=== PATIENT | male | born 1945 | race Caucasian/White ===

== ENCOUNTER → 2017-11-13 | Outpatient (CLI) | payer MEDICARE ==
--- NOTE | 2017-11-13 09:10 | CT ---
EXAMINATION TYPE: CT sinus wo con DATE OF EXAM: 11/13/2017 COMPARISON: None HISTORY: Chronic sinusitis CT DLP: 628.7 mGycm. Automated Exposure Control for Dose Reduction was Utilized. TECHNIQUE: CT scan of the sinuses is performed without contrast, axial images are obtained, coronal r eformatted images are also reviewed. FINDINGS: The paranasal sinuses including the frontal, ethmoid, sphenoid, and maxillary sinuses bila terally are well-aerated without abnormal opacification. The ostiomeatal complex is patent bilateral ly on the coronal images. Minimal mucoperiosteal thickening present in the maxillary sinus. Visualized portion of mastoid air cells show no abnormal opacification. The globes are intact bilate rally. Mild age-related atrophy is noted. Mild cerebral vascular calcifications noted in the vertebr al arteries. IMPRESSION: The sinuses are remarkable for minimal mucoperiosteal thickening in the maxillary sinus a nd the ostiomeatal complex is patent bilaterally.
== END ==
LOC: RADCTMAIN 06:50
PROVIDERS: ATTEND Otolaryngology
DX: J32.0 Chronic maxillary sinusitis (principal)
CPT/HCPCS: 70486

== ENCOUNTER → 2018-03-07 | Outpatient (CLI) | payer MEDICARE ==
--- NOTE | 2018-03-07 07:58 | CT ---
EXAMINATION TYPE: CT brain wo con DATE OF EXAM: 03/07/2018 COMPARISON: None HISTORY: abnormal findings skull or head CT DLP: 1121.[address] of the brain was performed. The ventricles, basal cisterns and sulci overlying the cerebral convexities demonstrate mild enlargem ent. There is no evidence for intracranial hemorrhage or sulcal effacement. There is decreased attenuation about the periventricular white matter and deep white matter of both c erebral hemispheres, compatible with chronic small vessel ischemia. Differential diagnosis does inclu de demyelination. No mass effects are seen.No midline shift. Osseous calvarium is intact. Chronic left maxillary sinusitis. If symptoms persist consider MRI. IMPRESSION: 1. Age related atrophic and chronic small vessel ischemic change without acute intracranial process s een at this time.
== END | disposition home or self-care (01) ==
LOC: RADCTMAIN 06:49
PROVIDERS: ATTEND Internal Medicine
DX: G31.1 Senile degeneration of brain, not elsewhere classified (principal); I67.82 Cerebral ischemia
CPT/HCPCS: 70450

== ENCOUNTER → 2018-06-14 | Outpatient (CLI) | payer MEDICARE ==
[2018-06-14 12:12] LABS: Blood Urea Nitrogen 12 mg/dL (9-20)
--- NOTE | 2018-06-14 14:04 | CT ---
EXAMINATION TYPE: CT abdomen pelvis w con DATE OF EXAM: 06/14/2018 COMPARISON: HISTORY: Generalized pain CT DLP: 449.3 mGycm Automated exposure control for dose reduction was used. TECHNIQUE: Helical acquisition of images was performed from the lung bases through the pelvis. CONTRAST: Performed with Oral Contrast and with IV Contrast, patient injected with 100 mL of Isovue 300. FINDINGS: LUNG BASES: Linear pleural parenchymal scarring is seen at the left lung base. LIVER/GB: Hepatic parenchyma is diffusely hypoattenuated in comparison to that of the spleen, most co mmonly seen in hepatic steatosis. This finding limits evaluation for hepatic masses. There is a solit mary too small to accurately characterize 5 mm hypoattenuated lesion in segment 8 of the liver on seri es 3 image 12. Remainder the liver enhances homogeneously. No intrahepatic ductal dilatation. Gallbla dder is unremarkable. PANCREAS: There is concern for a pancreatic body/neck mass as there is hypoattenuation of the pancrea tic parenchyma measuring approximately 2.5 cm in transverse dimension marked on series 3 image 22 wit h downstream ductal dilatation of 4 mm on coronal image 35 and pancreatic body/tail atrophy. Pancreat ic head also appears hyperdense in comparison to this and pelvis although no pancreatic ductal dilata tion is seen as the main pancreatic duct measures 3 mm within the pancreatic head, within normal limi ts. There is abnormal pancreatic body area is cranial to the superior mesenteric artery and abuts but does not encase the superior mesenteric vein. MRI of the abdomen is recommended for confirmation. SPLEEN: No significant abnormality is seen. ADRENALS: No significant abnormality is seen. KIDNEYS: 1.6 cm exophytic left lower pole renal cyst is present. No hydronephrosis or nephrolithiasis . FREE AIR: No free air is visualized. ADENOPATHY: There are few peripancreatic prominent lymph nodes one of which appear slightly hyperden se measuring 8 mm on image 21. Lymph node between the aditya hepatis and in the region of the gastrohe patic ligament measures 7 mm on image 19. No greater than 1 cm short axis lymph nodes are seen in the abdomen or pelvis. REPRODUCTIVE ORGANS: Prostate gland is heterogenous. URINARY BLADDER: No significant abnormality is seen. OSSEOUS STRUCTURES: Punctate nonspecific sclerotic focus is seen within the right iliac bone on imag e 53. Mild/moderate degenerative changes of the spine. BOWEL: Left inguinal hernia is present containing fat and portions of the sigmoid colon. There is so me fascial thickening posteriorly and very minimal inflammatory fat stranding. No dilated bowel to finnegan ggest obstruction. Numerous colonic diverticula are noted. No dilated large or small bowel throughout the abdomen. IMPRESSION: 1. FINDINGS CONCERNING FOR PANCREATIC BODY NEOPLASM. MRI OF THE ABDOMEN PANCREAS MASS PROTOCOL IS REC OMMENDED FOR FURTHER EVALUATION. 2. LEFT INGUINAL HERNIA CONTAINS PORTIONS OF THE SIGMOID COLON WITH VERY SUBTLE QUESTIONABLE FAT STRA NDING/INFLAMMATORY REACTION. NO CURRENT EVIDENCE OF OBSTRUCTION ON CT. 3. HEPATIC STEATOSIS. A Yellow level critical message alert has been initiated for Sagar Miller MD via the [employer] Critical Results System on 06/14/2018 2:01 PM. This message alert has been sent to Sagar Miller MD via the preferences provided by the clinician for the receipt of Radiology Critical Findings. Message ID [id number].
== END | disposition home or self-care (01) ==
LOC: RADCTMAIN 11:29
PROVIDERS: ATTEND Internal Medicine
DX: K40.90 Unilateral inguinal hernia, without obstruction or gangrene, not specified as recurrent (principal); K76.0 Fatty (change of) liver, not elsewhere classified
CPT/HCPCS: 82565; 84520; 74177; 36415; Q9967

== ENCOUNTER → 2018-06-17 | Outpatient (CLI) | payer MEDICARE ==
--- NOTE | 2018-06-18 11:18 | MR ---
EXAMINATION TYPE: MR abdomen wo/w con DATE OF EXAM: 06/17/2018 COMPARISON: CT abdomen and pelvis from 3 days ago. HISTORY: Pancreatic mass, abnormal CT. CONTRAST: Standard multiplanar, multisequence MRI departmental protocol utilizing 6.5 mL intravenous Gadavist g adolinium contrast. FINDINGS: Pancreas: Pancreatic neck mass is confirmed as there is pancreatic ductal dilatation in the body and tail with abrupt cut off secondary to nonenhancing 1.5 x 1.2 cm mass seen best series 701 image 281. Pancreas is bulky and the head without additional mass, there is poor separation of pancreas and brady cent duodenum without definitive mass extension. SMA is unusual course without definitive encasement, there is some redemonstration of focal dilatation image 207 series 701 for reference right before bi furcation. Celiac artery also shows focal prominence or dilatation image 307 series 701 without defin itive encasement. No definitive surrounding lymph nodes are seen. Other: Lung bases are clear. Liver, gallbladder, spleen, and both adrenal glands are normal in size. There is no concerning renal mass or hydronephrosis. There is no suspicious bowel dilatation. Osseous structures show narrowing and endplate changes L3-L4 level. IMPRESSION: Confirmation of obstructing 1.5 cm pancreatic neck mass with ductal dilatation consistent with pancreatic adenocarcinoma.
== END | disposition home or self-care (01) ==
LOC: RADMRIMAIN 13:35
PROVIDERS: ATTEND Internal Medicine
DX: K86.89 Other specified diseases of pancreas (principal)
CPT/HCPCS: 74183; A9585

== ENCOUNTER → 2018-07-02 | Outpatient (CLI) | payer MEDICARE ==
[2018-07-02 12:37] LABS: Partial Thromboplastin Time 26.3 sec (22.0-30.0); Prothrombin Time 10.7 sec (9.0-12.0)
[2018-07-02 19:03] LABS: T4, Free (Free Thyroxine) 1.6 ng/dL (0.80-1.80)
[2018-07-05 14:46] LABS: Lyme IgG/IgM 0.01 Index
== END ==
LOC: LABWHC1 11:33
PROVIDERS: ATTEND Psychiatry & Neurology Neurology
DX: D68.9 Coagulation defect, unspecified (principal); R41.3 Other amnesia
CPT/HCPCS: 36415; 82607; 82747; 84439; 84443; 85610; 85652; 85730; 86038; 86618

== ENCOUNTER → 2018-07-06 | Outpatient (CLI) | payer MEDICARE ==
--- NOTE | 2018-07-06 20:02 | MR ---
EXAMINATION TYPE: MR brain wo/w con DATE OF EXAM: 07/06/2018 COMPARISON: None HISTORY: Other amnesia, neoplasm TECHNIQUE: Multiplanar, multisequence images of the brain and brainstem is performed without and with IV contras t, utilizing 6.5 mL intravenous Gadavist . FINDINGS: There is cerebral cortical atrophy. There is no mass effect nor midline shift. There is no sign of in tracranial hemorrhage. There is no evidence of focal cortical infarct. The brainstem is intact. Corpu s callosum is intact. There is thinning of the corpus callosum. Sella turcica appears normal. There is normal contrast opacification of the vertebrobasilar artery system and the anterior middle a nd posterior cerebral arteries. There is normal contrast opacification of the venous sinuses. There i s no pathologic enhancement. IMPRESSION: Cerebral atrophy. No acute intracranial abnormality.
== END | disposition home or self-care (01) ==
LOC: RADMRIMAIN 09:44
PROVIDERS: ATTEND Psychiatry & Neurology Neurology
DX: G31.9 Degenerative disease of nervous system, unspecified (principal); I63.40 Cerebral infarction due to embolism of unspecified cerebral artery; R29.2 Abnormal reflex; D49.81 Neoplasm of unspecified behavior of retina and choroid
CPT/HCPCS: 70553; A9585

== ENCOUNTER 2018-07-15 12:57 | Day surgery (SDC) | payer MEDICARE ==
[2018-07-15 13:19] VITALS: BMI 20.2
--- NOTE | 2018-07-15 13:28 | P.GSHP ---
History of Present Illness H&P Date: 07/15/18 Chief Complaint: Pancreatic cancer 73-year-old male known to our service. Patient recently diagnosed with locally advanced pancreatic cancer. Here today for Port-A-Cath placement. Plans are for the patient to begin neoadjuvant chemotherapy later this week. Otherwise feels well at this time. Appetite is diminished. Some weight loss. Past Medical History Smoking Status: Never smoker Surgical - Exam Physical exam: General: Well-developed, well-nourished HEENT: Normocephalic, sclerae nonicteric Abdomen: Nontender, nondistended Extremities: No edema Neuro: Alert and oriented Assessment and Plan (1) Pancreatic cancer Narrative/Plan: Will proceed with Port-A-Cath placement at this time. Risks of bleeding, infection, DVT, pneumothorax, catheter malfunction, anesthesia related complications were discussed. The patient understands and wishes to proceed. Current Visit: Yes Status: Acute Code(s): C25.9 - MALIGNANT NEOPLASM OF PANCREAS, UNSPECIFIED SNOMED Code(s): 956730972
[2018-07-15 13:34] VITALS: RESP 16; TEMP 97.3
[2018-07-15] MEDS ORDERED: LACTATED RINGERS 1,000 ML IV ONE (13:39)
[2018-07-15] MEDS ORDERED: LIDOCAINE 1% 20 ML VIAL (10MG/ML) FOR IV START SQ ONE (13:39)
[2018-07-15] MEDS ORDERED: ceFAZolin IN SWFI 2 GM/20 ML SYRINGE IVP ONE (14:46)
[2018-07-15] MEDS ORDERED: LIDOCAINE 1% INJ 10MG/ML (20 ML MDV) ONE (15:28)
[2018-07-15] MEDS ORDERED: MIDAZOLAM 2 MG/2 ML VIAL ONE (15:28)
[2018-07-15] MEDS ORDERED: fentaNYL (PF) 50 MCG/ML 2 ML AMP ONE (15:28)
[2018-07-15] MEDS ORDERED: PROPOFOL 10 MG/ML 20 ML VIAL IV ONE (15:28)
[2018-07-15] MEDS ORDERED: HEPARIN SODIUM,PORCINE 100 UNIT/ML 5 ML VIAL IV ONE (15:56)
[2018-07-15] MEDS ORDERED: LIDOCAINE (PF) 10 MG/ML 2 ML VIAL SQ ONE ×2 (15:56)
[2018-07-15] MEDS ORDERED: HYDROcodone/APAP 5-325MG 1 EACH TAB PO PRN (16:39)
[2018-07-15] MEDS ORDERED: NALOXONE 0.4 MG/ML 1 ML VIAL IV PRN (16:39)
--- NOTE | 2018-07-15 16:42 | P.OP ---
Date of Procedure: 07/15/18 Procedure(s) Performed: PREOPERATIVE DIAGNOSIS: Pancreatic cancer POSTOPERATIVE DIAGNOSIS: Same PROCEDURE: Port-A-Cath placement SURGEON: Forrest EBL: Minimal ANESTHESIA: Sedation COMPLICATIONS: None OPERATIVE PROCEDURE: Patient was brought and placed on the operative table in the supine position. The patient was sedated per anesthesia that time. The chest and neck were prepped and draped in usual sterile fashion. The ultrasound probe was used to identify the location of the right internal jugular vein. The skin was localized with lidocaine. The Seldinger needle was advanced into the IJ under ultrasound guidance. The wire was advanced through the needle under fluoroscopic guidance into the superior vena cava. A port pocket was created in the right infraclavicular location. The catheter was tunneled from the wire entrance site to the port pocket. The port was then connected to the catheter. The dilator introducer was threaded over the guidewire. The guidewire and dilator were then removed. The catheter was advanced through the introducer and introducer was then removed. The tip was seen to be in the right atrial junction. Port was flushed with both saline and a Hep-Lock solution. There was good flow both in and out of the port. The port was sutured in underlying tissues using 3-0 silk sutures. The subcutaneous tissues were reapproximated using 3-0 Vicryl sutures and the skin at both locations using 4-0 Monocryl sutures. Skin glue and sterile dressings then applied. DISPOSITION: Stable to recovery room
--- NOTE | 2018-07-15 17:10 | XR ---
EXAMINATION TYPE: XR chest 1V confirm line [facility] DATE OF EXAM: 07/15/2018 COMPARISON: 06/26/2013 HISTORY: Check line placement TECHNIQUE: Single frontal view of the chest is obtained. FINDINGS: Heart and mediastinum are normal. Lungs are clear. Diaphragm is normal. Bony thorax is nor mal. There is right central venous catheter with the tip in the superior vena cava. IMPRESSION: Normal chest. No change.
[2018-07-15 17:17] VITALS: BP 132/76; PULSE 71
[2018-07-16] MEDS ORDERED: Pre Op ABX Message 1 EACH MISC MISCELLANE ONE (05:00)
--- NOTE | 2018-07-16 09:29 | FL ---
Fluoroscopy HISTORY: Central catheter placement 3 seconds fluoroscopy time supplied to the referring clinician. 1 intraoperative C-arm images docume nt the procedure. See dictated report from general surgery.
== END 2018-07-15 17:25 | disposition home or self-care (01) ==
LOC: OR 12:57
PROVIDERS: ATTEND Surgery
DX: C25.9 Malignant neoplasm of pancreas, unspecified (principal); Z79.890 Hormone replacement therapy; Z79.899 Other long term (current) drug therapy
CPT/HCPCS: 77001; 36561; C1788; J2250; J2001 ×2; J1642; J3010; J2704; J0690

== ENCOUNTER → 2018-08-26 | Outpatient (CLI) | payer MEDICARE ==
--- NOTE | 2018-08-26 21:53 | CT ---
EXAMINATION TYPE: CT abdomen pelvis w con DATE OF EXAM: 08/26/2018 COMPARISON: 06/14/2018 HISTORY: 73-year-old male Follow up pancreatic cancer. Observation for metastases. TECHNIQUE: Contiguous axial scanning of the abdomen and pelvis following administration of 100 ml Iso jennifer 300 IV contrast. Delayed images through the kidneys and coronal/sagittal reconstructions perform ed. CT DLP: 399 mGycm Automated exposure control for dose reduction was used. FINDINGS: Heart normal size without pericardial effusion. Stringy atelectasis at the posterior left base. No pl eural effusion. There is new pneumobilia secondary to indwelling metallic biliary stent. No focal liver lesion. There is cut off of the portal venous system at the level of the portal venous confluence prominent collat eral vessels are present in the upper abdomen. Gallbladder, adrenal glands, right kidney, and spleen appear within normal limits. Exophytic 1.8 cm c yst lateral aspect of the left kidney. Redemonstrated hypovascular mass involving the neck of the pancreas. On the current exam, it is estim ated to measure approximately 3.3 cm versus approximately 3.1 cm in prior exam. There is upstream st creatic atrophy and ductal dilatation. The mass abuts the proximal splenic artery and anterior wall o f the SMA, similar to prior exam. Similar bulbous dilatation of the proximal celiac axis to 1.3 cm in estimated to 1.1 cm. No definite enlarging peripancreatic lymphadenopathy is identified. No dilated small bowel, free fluid, or free air. There is moderate stool in sigmoid diverticulosis. Circumferential wall thickening of the sigmoid col on likely due to incomplete distention. Direct left inguinal hernia redemonstrated. Sigmoid colon minimally extends anterior to the deep ingu inal ring as does a short loop of small bowel. Currently, there is primarily fat containing within th e inguinal hernia. Retroaortic left renal vein. Bladder partially distended. Prostate gland measures 5.5 cm white. No abnormal fluid collection in th e pelvis or pelvic lymphadenopathy seen. Bones: Degenerative changes at the hips. Facet arthropathy lower lumbar spine. Moderate to advanced d egenerative disc disease L1-L4 levels. Trace grade 1 anterolisthesis L4-L5. IMPRESSION: 1. KNOWN 3.3 CM HYPOVASCULAR MASS CENTERED ALONG THE PANCREATIC NECK CONTINUES TO ENCASE AND CUT OFF THE PORTAL VENOUS CONFLUENCE. IT SIMILARLY ABUTS THE PROXIMAL SPLENIC ARTERY AND ANTERIOR WALL OF THE SMA. THE MASS DOES NOT SHOW SIGNIFICANT CHANGE IN THE INTERVAL, PREVIOUSLY ESTIMATED TO MEASURE 3.[address] OF 06/14/2018. 2. NEW METALLIC BILIARY STENT AND SECONDARY PNEUMOBILIA. 3. NO PROGRESSIVE LYMPHADENOPATHY IDENTIFIED. 4. MODERATE STOOL BURDEN WITH SIGMOID DIVERTICULOSIS. THERE IS CIRCUMFERENTIAL WALL THICKENING ALONG THE SIGMOID COLON THAT COULD BE DUE TO INCOMPLETE DISTENTION OR NONSPECIFIC COLITIS. 5. 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
== END | disposition home or self-care (01) ==
LOC: RADPROMAIN 14:06
PROVIDERS: ATTEND Internal Medicine Hematology & Oncology
DX: K86.89 Other specified diseases of pancreas (principal); K57.30 Diverticulosis of large intestine without perforation or abscess without bleeding; N40.0 Benign prostatic hyperplasia without lower urinary tract symptoms; C25.1 Malignant neoplasm of body of pancreas
CPT/HCPCS: 74177; J1642; Q9967